=== PATIENT | female | born 1965 | race Two or more races ===

== ENCOUNTER → 2025-02-06 | Outpatient (CLI) | payer MEDICAID ==
[2025-02-06 12:12] LABS: Hematocrit 38.9 % (36.0-46.0); Hemoglobin 13.2 g/dL (12.2-16.2); Mean Corpuscular Hemoglobin 30.0 pg (28.0-32.0); Mean Corpuscular Volume 88.1 fL (80.0-100.0); Nucleated Red Blood Cells % 0.0 %
[2025-02-06 12:23] LABS: INR 1.03 (0.9-1.15); Partial Thromboplastin Time 30.3 SEC (24.5-34.5); Prothrombin Time 10.9 sec (9.3-11.8)
== END | disposition home or self-care (01) ==
LOC: LAB 11:47
PROVIDERS: ATTEND Internal Medicine
DX: M67.40 Ganglion, unspecified site (principal); M77.8 Other enthesopathies, not elsewhere classified
CPT/HCPCS: 36415; 85025; 85610; 85730

== ENCOUNTER 2025-02-13 09:05 | Outpatient (CLI) | payer MEDICAID ==
--- NOTE | 2025-02-13 10:49 | DVH ---
PROCEDURE: Ganglion cyst aspiration Procedural Personnel Attending physician(s): Anmol Nicole Fellow physician(s): None Resident physician(s): None Advanced practice provider(s): None Pre-procedure diagnosis: Left bicep tendon fluid collection Post-procedure diagnosis: Same Indication: Pain Additional clinical history: None Complications: No immediate complications. IMPRESSION: Image-guided therapeutic left bicep tendon cyst aspiration, yielding 1 mL of gelatinous fluid. Plan: The patient tolerated the procedure well. PROCEDURE SUMMARY: - Left bicep tendon cyst aspiration with ultrasound guidance - Additional procedure(s): None PROCEDURE DETAILS: Pre-procedure Consent: Informed consent for the procedure including risks, benefits and alternatives was obtained a nd time-out was performed prior to the procedure. Preparation: The site was prepared and draped using maximal sterile barrier technique including cutan eous antisepsis. Anesthesia/sedation Level of anesthesia/sedation: No sedation Anesthesia/sedation administered by: Not applicable Total intra-service sedation time (minutes): Not applicable. Arthrocentesis The patient was positioned supine . Local anesthesia was administered. Under image guidance, a needle was advanced into the ganglion cyst under real time sonographic visualization . Aspiration was perfo rmed. Needle: 18 gauge, 3 cm Fluid volume aspirated (ml): 1 Fluid appearance: Gelatinous Contrast administered: None Joint lavage: No Closure The needle was removed and hemostasis was achieved with manual compression. A sterile bandage was ramon lied. Radiation Dose NA Additional Details Additional description of procedure: None Registry event: V /3 /g Device used: None Equipment details: None Unique Device Identifiers: Not available Specimens removed: None Estimated blood loss (mL): Less than 10 Standardized report: [email or web address] Attestation Signer name: Anmol Nicole I attest that I was present for the entire procedure . I reviewed the stored images and agree with th e report as written.
== END 2025-02-13 17:00 | disposition home or self-care (01) ==
LOC: US 09:05
PROVIDERS: ATTEND Physician Assistant Medical
DX: M67.412 Ganglion, left shoulder (principal)
CPT/HCPCS: 20612; 76942; 87205